=== PATIENT | female | born 1995 | race Caucasian/White ===

== ENCOUNTER 2023-01-18 18:20 | Emergency (ER) | payer MEDICAID ==
[2023-01-18 18:56] VITALS: TEMP 98.9; O2SAT 100
[2023-01-18 19:07] LABS: Group A Strep NOT DETECTED (NEGATIVE)
--- NOTE | 2023-01-18 19:10 | ERPHSYRPT ---
- History of Present Illness Time Seen by Provider: 01/18/23 19:10 Source: patient Exam Limitations: no limitations Patient Subjective Stated Complaint: pt states that she has had a cough for the past couple weeks. pt states SOB Triage Nursing Assessment: pt ambulated into the er; pt is axo x4; c/o SOB; clear lung sounds in all lobes; skin PDW; dry hacking cough present; O2 100% on room air; tachycardic; pt states SOB; no visible respiratory distress present Physician History: This is a 27-year-old white female patient who does not have chest pain but presents with coughing for at least 2 weeks. She has a son with similar symptoms. She has some shortness of breath but it is related to the coughing spells. Who room air oxygen saturation levels here in the emergency department is 100%. Patient is a daily smoker of cigarettes. Patient has no abdominal pain. She denies nausea vomiting and diarrhea symptoms. Timing/Duration: week(s) (2) Cough Quality/Degree: moderate, dry cough Possible Cause: no prior episodes Modifying Factors: Improves With: coughing Associated Symptoms: cough, shortness of breath, No chest pain/soreness, No nasal congestion, No sore throat (With coughing) Allergies/Adverse Reactions: No Known Drug Allergies Allergy (Unverified 01/18/23 18:25) Home Medications: Desvenlafaxine Succinate [Pristiq ER] 100 mg PO DAILY 01/18/23 [History] Methylphenidate HCl [Methylphenidate ER] 20 mg PO DAILY 01/18/23 [History] Methylphenidate HCl [Methylphenidate ER] 36 mg PO DAILY 01/18/23 [History] Hx Tetanus, Diphtheria Vaccination/Date Given: Yes Hx Influenza Vaccination/Date Given: No Hx Pneumococcal Vaccination/Date Given: No Immunizations Up to Date: Yes Travel Risk - International Travel Have you traveled outside of the country in past 3 weeks: No - Coronavirus Screening Are you exhibiting any of the following symptoms?: Yes Symptoms: Cough: New Onset, Shortness of Breath - Vaccine Status Have you recieved a Covid-19 vaccination: Yes 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 - Vaccination Dates Date of 2cond Vaccination (if applicable): 02/08/21 - Review of Systems Constitutional: No Symptoms Eyes: No Symptoms Ears, Nose, & Throat: No Symptoms Respiratory: Cough Cardiac: No Symptoms Abdominal/Gastrointestinal: No Symptoms Genitourinary Symptoms: No Symptoms Musculoskeletal: No Symptoms Skin: No Symptoms Neurological: No Symptoms Psychological: No Symptoms Endocrine: No Symptoms Hematologic/Lymphatic: No Symptoms Immunological/Allergic: No Symptoms All Other Systems: Reviewed and Negative - Past Medical History Pertinent Past Medical History: Yes Neurological History: No Pertinent History ENT History: No Pertinent History Cardiac History: No Pertinent History Respiratory History: No Pertinent History Endocrine Medical History: No Pertinent History Musculoskeletal History: No Pertinent History GI Medical History: No Pertinent History History: No Pertinent History Psycho-Social History: Anxiety, Attention Deficit Disorder Female Reproductive Disorders: No Pertinent History Other Medical History: PTSD - Past Surgical History Past Surgical History: Yes Neuro Surgical History: No Pertinent History Cardiac: No Pertinent History Gastrointestinal: Appendectomy Genitourinary: No Pertinent History Musculoskeletal: No Pertinent History Female Surgical History: Section, Tubal Ligation Other Surgical History: x2 - Social History Smoking Status: Current every day smoker How long have you smoked: 16 Exposure to second hand smoke: Yes Drug Use: none Patient Lives Alone: No - Female History Hx Now: No - Nursing Vital Signs Nursing Vital Signs: Initial Vital Signs Temperature 98.9 F 01/18/23 18:21 Pulse Rate 133 H 01/18/23 18:21 Respiratory Rate 24 01/18/23 18:21 Blood Pressure 130/86 01/18/23 18:21 O2 Sat by Pulse Oximetry 100 01/18/23 18:21 Pain Scale Pain Intensity 0 - Physical Exam General Appearance: no apparent distress, alert, anxiety Eye Exam: PERRL/EOMI, eyes nml inspection Ears, Nose, Throat Exam: normal ENT inspection, moist mucous membranes Neck Exam: normal inspection, non-tender, supple, full range of motion Respiratory Exam: normal breath sounds, lungs clear, airway intact, No chest tenderness, No respiratory distress Cardiovascular Exam: tachycardia Gastrointestinal/Abdomen Exam: soft, normal bowel sounds, No tenderness Pelvic Exam: not done Rectal Exam: not done Back Exam: normal inspection, normal range of motion, No CVA tenderness, No vertebral tenderness Extremity Exam: normal inspection, normal range of motion, pelvis stable Neurologic Exam: alert, oriented x 3, cooperative, software sales representative II-XII nml as tested, normal mood/affect, nml cerebellar function, nml station & gait, sensation nml Skin Exam: normal color, warm, dry Lymphatic Exam: No adenopathy SpO2 Interpretation: normal SpO2: 100 O2 Delivery: Room Air - Course Nursing assessment & vital signs reviewed: Yes Ordered Tests: Active Orders 24 hr Category Date Time Status CHEST 1 VIEW (PORTABLE) Stat Exams 01/18/23 19:09 Taken Lab/Rad Data: Laboratory Results 01/18/23 Range/Units 18:35 Influenza Type A Ag NEGATIVE (NEGATIVE) Influenza Type B Ag NEGATIVE (NEGATIVE) RSV (PCR) POSITIVE (NEGATIVE) SARS-CoV-2 (PCR) NEGATIVE (NEGATIVE) Group A Strep Antibody NOT DETECTED (NEGATIVE) - Progress Progress: unchanged Air Movement: good Progress Note: 01/18/23 19:33 This patient's medical issue is 1 of low complexity. Level complex in the workup performed based on review the patient's past medical history, review the patient's medication list, review the patient drug allergy list, history of present illness and physical findings on examination. Workup includes viral swabs and strep swabs. We will also obtain a chest x-ray. I reviewed and interpreted the results of the laboratory studies. Patient is positive for RSV. We will provide her with a steroid dose here in the hospital orally. Will also send her home with 10 mL of hydrocodone elixir to help provide relief of her cough. We are awaiting the results of the chest x-ray determine if patient has evidence of a pneumonia. 01/18/23 20:02 Chest x-ray was interpreted by me. There is no evidence of any acute cardiopulmonary process. Blood Culture(s) Obtained: No Antibiotics given: No Counseled pt/family regarding: lab results, diagnosis, need for follow-up, rad results Medical Desision Making - Diagnostic Testing Diagnostic test were ordered, analyzed, and reviewed by me: Yes Radiological Interpretation: Interpreted by me, Teleradiologist Report - Risk of complications The pt has a mod risk of morbidity or mortality based on: Need for prescription drug management - Departure Departure Disposition: Home Clinical Impression: RSV bronchitis Condition: Stable Critical Care Time: No Referrals: DOCTOR,NO FAMILY [Primary Care Provider] - Follow up/PCP as directed Additional Instructions: Drink plenty of fluids. Avoid exposure to any type of smoke. Take your medications as prescribed. Follow-up with your primary care provider tomorrow, 01/19/2023, by phone to make arranges for follow-up appointment in the next 3 to 5 days. Prescriptions: Prednisone 10 mg [Deltasone 10 mg] 10 mg PO TID #12 tablet Hydrocodone/Acetaminophen [Hydrocodone-Acetamn 7.5-325/15] 10 ml PO Q8H PRN #120 ml MDD 30 ml PRN Reason: Cough Albuterol 8 gm Mdi Hfa [Ventolin Hfa MDI] 8 gm IH Q4H #1 unit
[2023-01-18 19:19] LABS: INFLUENZA A NEGATIVE (NEGATIVE); INFLUENZA B NEGATIVE (NEGATIVE); SARS-CoV-2 Xpert Express NEGATIVE (NEGATIVE)
[2023-01-18 19:21] LABS: RESPIRATORY SYNCTIAL VIRUS POSITIVE (NEGATIVE)
[2023-01-18 19:48] VITALS: RESP 22
[2023-01-18] MEDS ORDERED: HYDROCODONE-ACETAMIN 2.5-108/5 ML SOLUTION PO STA (20:03)
[2023-01-18] MEDS ORDERED: DELTASONE 20 MG PO ONE (20:03)
[2023-01-18] MEDS ORDERED: DELTASONE 20 MG ONE (20:06)
[2023-01-18] MEDS ORDERED: HYDROCODONE-ACETAMIN 2.5-108/5 ML SOLUTION ONE (20:06)
[2023-01-18 20:40] VITALS: BP 110/68; PULSE 99
--- NOTE | 2023-01-19 08:42 | XRAY ---
Indication: Cough 2 weeks. Comparison: December 28, 2008 Portable apical lordotic chest again demonstrates normal heart, lungs, and bony thorax. New bilateral nipple jewelry.
== END 2023-01-18 20:39 | disposition home or self-care (01) ==
LOC: ED 18:20
DX: J20.5 Acute bronchitis due to respiratory syncytial virus (principal); R05.9 Cough, unspecified; Z79.891 Long term (current) use of opiate analgesic; Z79.52 Long term (current) use of systemic steroids; Z79.899 Other long term (current) drug therapy; Z72.0 Tobacco use
CPT/HCPCS: 0241U; 71045; 87651; 99283; A9270-GY